=== PATIENT | female | born 1945 | race Caucasian/White ===

== ENCOUNTER 2018-09-11 12:40 | Emergency (ER) | payer MEDICARE ==
[2018-09-11 13:45] VITALS: BP 130/62
--- NOTE | 2018-09-11 13:50 | UC ---
Skin Complaint HPI - History of Current Complaint Chief Complaint: UCLowerExtremity Time Seen by Provider: 09/11/18 13:49 Stated Complaint: SKIN CONCERN - INSECT BITE Pain Intensity: 8 - Allergy/Home Medications Allergies/Adverse Reactions: Allergies Allergy/AdvReac Type Severity Reaction Status Date / Time azithromycin Allergy Severe VOMITING Verified 09/11/18 13:36 AND DIARRHEA diazepam [From Valium] Allergy Severe SUICIDAL Verified 09/11/18 13:36 TENDENCIES liraglutide [From Victoza] Allergy Severe N/V/D-SEVER Verified 09/11/18 13:36 E ciprofloxacin [From Cipro] Allergy Unknown STOMACH Verified 09/11/18 13:36 PAIN,CHEST TENDERNESS, GI UPSET, CONFUSION glimepiride Allergy Unknown SICK Verified 09/11/18 13:36 FEELING levothyroxine Allergy Unknown ELEVATED Verified 09/11/18 13:36 BLOOD SUGAR, IRREG HEART RATE pantoprazole [From Protonix] Allergy Unknown GASTRIC Verified 09/11/18 13:36 PAIN verapamil Allergy Unknown PAINFUL Verified 09/11/18 13:36 FLUID BUILD UP, HAIR LOSS BETA BLOCKERS Allergy Severe PAINFUL Uncoded 09/11/18 13:31 A-FIB PMH/Surg Hx/FS Hx/Imm Hx - Surgical History Surgical History: Yes Surgery Procedure, Year, and Place: HYSTERECTOMY. CHOLYCYSTECTOMY,. APPENDECTOMY. EYES- LENS - Social History Alcohol Use: None Substance Use Type: None Smoking Status (MU): Former Smoker When Did the Patient Quit Smoking/Using Tobacco: 1988 Physical Exam Vital Signs: Initial Vital Signs Temp 98.2 F 09/11/18 13:38 Pulse 79 09/11/18 13:38 Resp 20 09/11/18 13:38 BP 130/62 09/11/18 13:38 Pulse Ox 97 09/11/18 13:38 Discharge - Discharge Plan Referrals: Sai Patel DO [Primary Care Provider] -
--- NOTE | 2018-09-11 14:49 | UC ---
Skin Complaint HPI - HPI Summary HPI Summary: For the past 36 hours has had episodes of severe itching and burning in the medial left ankle area associated with induration, concerned that this is a spider bite. Level of pruritis is disrupting sleep, topical benadryl and 1% hC cream are not helping. Concerned because she sleeps in a room where she thinks that her son had a recluse spider bite. - History of Current Complaint Chief Complaint: UCLowerExtremity Time Seen by Provider: 09/11/18 13:49 Stated Complaint: SKIN CONCERN - INSECT BITE Hx Obtained From: Patient Onset/Duration: Sudden Onset, Lasting Days Skin Exposure Onset/Duration: Days Ago - 1.5 days Timing: Constant Onset Severity: Moderate Current Severity: Moderate Pain Intensity: 8 Location: Discrete Character: Pruritus, Pain Aggravating Factor(s): Touch Alleviating Factor(s): OTC Meds Associated Signs & Symptoms: Positive: Negative - Allergy/Home Medications Allergies/Adverse Reactions: Allergies Allergy/AdvReac Type Severity Reaction Status Date / Time azithromycin Allergy Severe VOMITING Verified 09/11/18 13:36 AND DIARRHEA diazepam [From Valium] Allergy Severe SUICIDAL Verified 09/11/18 13:36 TENDENCIES liraglutide [From Victoza] Allergy Severe N/V/D-SEVER Verified 09/11/18 13:36 E ciprofloxacin [From Cipro] Allergy Unknown STOMACH Verified 09/11/18 13:36 PAIN,CHEST TENDERNESS, GI UPSET, CONFUSION glimepiride Allergy Unknown SICK Verified 09/11/18 13:36 FEELING levothyroxine Allergy Unknown ELEVATED Verified 09/11/18 13:36 BLOOD SUGAR, IRREG HEART RATE pantoprazole [From Protonix] Allergy Unknown GASTRIC Verified 09/11/18 13:36 PAIN verapamil Allergy Unknown PAINFUL Verified 09/11/18 13:36 FLUID BUILD UP, HAIR LOSS BETA BLOCKERS Allergy Severe PAINFUL Uncoded 09/11/18 13:31 A-FIB Home Medications: Home Medications ALPRAZolam TAB* [Xanax TAB*] 0.5 mg PO TID PRN 09/11/18 [History Confirmed 09/11] Amitriptyline TAB* [Elavil TAB*] 25 mg PO BEDTIME PRN 09/11/18 [History Confirmed 09/11/18] Aspirin TAB* [Aspirin 325 MG TAB*] 325 - 650 mg PO DAILY PRN 09/11/18 [History Confirmed 09/11/18] Cholecalciferol CAP/TAB(NF) [Vitamin D3 CAP/TAB (NF)] 09/11/18 [History] Multivitamin/Iron/Folic Acid [Centrum Adults Tablet] 1 each PO DAILY 09/11/18 [ History Confirmed 09/11/18] Omeprazole 20 mg PO BID 09/11/18 [History Confirmed 09/11/18] Sitagliptin Phosphate [Januvia] 100 mg PO DAILY 09/11/18 [History Confirmed 01/22] Spironolactone/HCTZ 25-25 MG* [Aldactazide 25-25*] 1 tab PO DAILY 09/11/18 [ History Confirmed 09/11/18] dilTIAZem HCl [Cartia Xt] 240 mg PO DAILY 09/11/18 [History Confirmed 09/11/18] metFORMIN* [Glucophage 1000 MG TAB *] 1,000 mg PO DAILY 09/11/18 [History Confirmed 09/11/18] PMH/Surg Hx/FS Hx/Imm Hx Previously Healthy: No Endocrine History: Diabetes Cardiovascular History: Hypertension GI/ History: Gastroesophageal Reflux - Surgical History Surgical History: Yes Surgery Procedure, Year, and Place: HYSTERECTOMY. CHOLYCYSTECTOMY,. APPENDECTOMY. EYES- LENS - Family History Known Family History: Positive: Non-Contributory - Social History Occupation: Retired - retired RN Lives: With Family Alcohol Use: None Substance Use Type: None Smoking Status (MU): Former Smoker When Did the Patient Quit Smoking/Using Tobacco: 1988 Review of Systems All Other Systems Reviewed And Are Negative: Yes Constitutional: Positive: Negative Skin: Positive: Other - are of induration, hx of varicosities. Eyes: Positive: Negative ENT: Positive: Negative Respiratory: Positive: Negative Cardiovascular: Positive: Negative Gastrointestinal: Positive: Negative Genitourinary: Positive: Negative Motor: Positive: Negative Neurovascular: Positive: Negative Musculoskeletal: Positive: Negative Neurological: Positive: Paresthesia - hx of diabetic neuropathy Is Patient Immunocompromised?: No Physical Exam Triage Information Reviewed: Yes Appearance: Well-Appearing, Pain Distress - mild, Obese Vital Signs: Initial Vital Signs Temp 98.2 F 09/11/18 13:38 Pulse 79 09/11/18 13:38 Resp 20 09/11/18 13:38 BP 130/62 09/11/18 13:38 Pulse Ox 97 09/11/18 13:38 Eye Exam: Normal ENT: Positive: Pharynx normal Respiratory: Positive: Lungs clear, Normal breath sounds Cardiovascular: Positive: RRR, No Murmur Musculoskeletal Exam: Normal Neurological: Positive: Alert Psychological Exam: Normal Skin Exam: Other - varicosities/spider veins both ankles. Medial malleolar area with diffuse area of induration 1 cm, no clear entry points, skin intackt, no erythema, warmth or necrrosis. Course/Dx - Course Course Of Treatment: steroid cream for treatment of itchy bite. - Differential Diagnoses - Skin Complaint Differential Diagnoses: Cellulitis, Contact Dermatitis, Other - bite - Diagnoses Provider Diagnosis: Insect bite (nonvenomous), left foot, initial encounter Discharge - Sign-Out/Discharge Documenting (check all that apply): Patient Departure All imaging exams completed and their final reports reviewed: No Studies - Discharge Plan Condition: Good Disposition: HOME Prescriptions: Clobetasol 0.05% OINT* 1 applic TOPICAL BID #15 gm Patient Education Materials: Insect Bite or Sting (ED) Referrals: Sai Patel DO [Primary Care Provider] - Additional Instructions: As discussed, you will try cold compresses to the area on the right ankle. Apply clobetasal sparingly: it is a potent steroid and is not to be used for more than 2 weeks, and should not be applied to other areas of the body, especially the face. You can continue use of topical or oral benadry for itch. - Billing Disposition and Condition Condition: GOOD Disposition: Home
== END 2018-09-11 15:11 | disposition home or self-care (01) ==
LOC: UCCORT 12:40
DX: S90.862A Insect bite (nonvenomous), left foot, initial encounter (principal); W57.XXXA Bitten or stung by nonvenomous insect and other nonvenomous arthropods, initial encounter; E11.9 Type 2 diabetes mellitus without complications; I10 Essential (primary) hypertension; K21.9 Gastro-esophageal reflux disease without esophagitis; Z79.82 Long term (current) use of aspirin; Z88.1 Allergy status to other antibiotic agents; Z88.8 Allergy status to other drugs, medicaments and biological substances; Z87.891 Personal history of nicotine dependence
CPT/HCPCS: 99202; G0463